=== PATIENT | male | born 1940 | race African-American/Black ===

== ENCOUNTER 2019-08-18 15:46 | Inpatient (IN) | payer MEDICARE, BC ==
[~2019-08-18] VITALS: Ht 175.3 cm; Wt 99.3 kg
[~2019-08-18 15:46] MED LIST: ACET-2708 PO; DOCU-150 PO; SIMV-46 PO; TAMS0.4C31 PO; TRAM50TA PO
[2019-08-18] MEDS ORDERED: HYDROCODONE/ACETAMINOPHEN 5/325MG TABLET PO STA (16:11)
[2019-08-18] MEDS ORDERED: ACETAMINOPHEN 325MG TABLET PO STA (16:11)
[2019-08-18] MEDS ORDERED: SODIUM CHLORIDE 0.9% 500 ML IV ONE (17:00)
[2019-08-18 17:09] LABS: BASOPHILS % 0.5 % (0.0-2.0); EOSINOPHILS % 0.1 % (0.0-5.0); HEMATOCRIT. 36.6 % (42.0-52.0); HEMOGLOBIN. 12.3 g/dL (14.0-18.0); LYMPHOCYTES % 10.2 % (20.0-50.0); MEAN CORPUSCULAR HEMOGLOBIN 31.4 pg (28.0-32.0); MEAN CORPUSCULAR VOLUME 93.4 fL (80.0-94.0); MEAN PLATELET VOLUME 8.1 fl (7.4-10.4); MONOCYTES % 12.3 % (2.0-8.0); NEUTROPHILS % 76.9 % (40.0-76.0); PLATELET 201 x1000/uL (130-400); RED BLOOD CELL COUNT 3.92 mill/uL (4.7-6.1); RED CELL DISTRIBUTION WIDTH 15.1 % (11.6-14.6)
[2019-08-18 17:13] LABS: CHLORIDE 109 mEq/L (98-107)
[2019-08-18] MEDS ORDERED: CEFTRIAXONE 1 G PREMIX 50 ML IV NR (20:00)
[2019-08-18] MEDS ORDERED: IPRATROPIUM/ALBUTEROL 0.5-3(2.5)MG/3ML NEB HHN PRN (20:00)
[2019-08-18] MEDS ORDERED: CLONIDINE 0.1MG TABLET PO PRN (20:00)
[2019-08-18] MEDS ORDERED: ONDANSETRON HCL 4MG/2ML INJ IV PRN (20:00)
[2019-08-18] MEDS ORDERED: MAGNESIUM/ALUMINUM HYDROXIDE/SIMETHICONE 30ML UDC PO PRN (20:00)
[2019-08-18] MEDS: FUROSEMIDE 20MG/2ML VIAL IVP SCH (21:22)
[2019-08-18] MEDS: CARVEDILOL 3.125 MG TABLET PO SCH (21:37)
[2019-08-18] MEDS: ENOXAPARIN 100MG/ML SYR SUBCUT SCH (22:08)
[2019-08-19 05:41] LABS: HEMATOCRIT. 32.9 % (42.0-52.0); HEMOGLOBIN. 11.1 g/dL (14.0-18.0); MEAN CORPUSCULAR HEMOGLOBIN 31.3 pg (28.0-32.0); MEAN CORPUSCULAR VOLUME 93.1 fL (80.0-94.0); MEAN PLATELET VOLUME 8.5 fl (7.4-10.4); PLATELET 189 x1000/uL (130-400); RED BLOOD CELL COUNT 3.54 mill/uL (4.7-6.1); RED CELL DISTRIBUTION WIDTH 14.9 % (11.6-14.6)
[2019-08-19 05:54] LABS: CHLORIDE 107 mEq/L (98-107)
[2019-08-19 06:04] LABS: T4 FREE 1.23 ng/dL (0.76-1.46)
[2019-08-19 07:06] LABS: PLATELET ESTIMATE NORMAL
[2019-08-19 07:52] LABS: BG BASE EXCESS 0.5 mmol/L (-2.0-2.0); BG CARBOXYHEMOGLOBIN 0.7 % (0.5-1.5); BG DEOXYHEMOGLOBIN 4.2 % (0.0-5.0); BG FRACTION INSPIRED OXYGEN 21; BG HCO3 ACT 25.5 mmol/L (22.0-26.0); BG METHEMOGLOBIN 0.1 % (0.0-1.5); BG OXYGEN SATURATION 95.8 % (92.0-98.5); BG PCO2 42.3 mmHg (35.0-45.0); BG PH 7.398 (7.350-7.450); BG SAMPLE SITE RIGHT RADIAL; BG VENT MODE ROOM AIR
[2019-08-19 09:10] LABS: CLARITY URINE CLEAR (CLEAR); COLOR URINE YELLOW (YELLOW); KETONES URINE NEGATIVE (NEGATIVE); LEUKOCYTE ESTERASE URINE NEGATIVE (NEGATIVE); NITRITE URINE NEGATIVE (NEGATIVE); OCCULT BLOOD URINE 2+ (NEGATIVE); PROTEIN URINE 1+ (NEGATIVE); SPECIFIC GRAVITY URINE 1.013 (1.005-1.030)
[2019-08-19] MEDS: FUROSEMIDE 20MG/2ML VIAL IVP SCH (09:29)
[2019-08-19] MEDS: ACETAMINOPHEN 325MG TABLET PO PRN ×2 (09:30→18:31)
[2019-08-19] MEDS: ENOXAPARIN 100MG/ML SYR SUBCUT SCH ×2 (09:30→20:36)
[2019-08-19] MEDS: CARVEDILOL 3.125 MG TABLET PO SCH (11:07)
[2019-08-19] MEDS ORDERED: AZITHROMYCIN 500 MG in DEXT 5% WATER 250 ML IV NR (12:00)
[2019-08-19] MEDS ORDERED: METOPROLOL TARTRATE 25MG TABLET PO SCH (12:15)
[2019-08-19 16:30] VITALS: BP 157/80
[2019-08-19] MEDS ORDERED: ALBUTEROL 6.7GM HFA INHALER ORI PRN (17:00)
[2019-08-19 20:00] VITALS: BP 122/93
[2019-08-19] MEDS: ASCORBIC ACID 500 MG TABLET PO SCH (20:37)
[2019-08-19] MEDS ORDERED: CEFTRIAXONE 1 G PREMIX 50 ML IV ONE (21:00)
[2019-08-20] VITALS (7 sets, daily range): BP systolic 109–164; BP diastolic 72–93
[2019-08-20 08:18] LABS: INR 1.1; PROTHROMBIN TIME 11.8 sec (9.6-11.0)
[2019-08-20] MEDS: FUROSEMIDE 20MG/2ML VIAL IVP SCH (08:37)
[2019-08-20] MEDS: THIAMINE HCL 100MG TABLET PO SCH (08:38)
[2019-08-20] MEDS: ZINC SULFATE 220 MG ( 50 ) CAPSULE PO SCH (08:38)
[2019-08-20] MEDS: ASCORBIC ACID 500 MG TABLET PO SCH ×2 (08:38→21:56)
[2019-08-20] MEDS: ENOXAPARIN 100MG/ML SYR SUBCUT SCH (08:39)
[2019-08-20] MEDS: AMLODIPINE 5MG TABLET PO SCH (08:39)
[2019-08-20] MEDS ORDERED: AZITHROMYCIN 500 MG in DEXT 5% WATER 250 ML IV SCH (12:00)
[2019-08-20] MEDS: ACETAMINOPHEN 325MG TABLET PO PRN ×3 (12:24→22:26)
[2019-08-20] MEDS: METOPROLOL TARTRATE 25MG TABLET PO SCH ×2 (13:00→21:56)
[2019-08-20 16:30] LABS: BASOPHILS % 0.7 % (0.0-2.0); EOSINOPHILS % 0.3 % (0.0-5.0); HEMATOCRIT. 35.1 % (42.0-52.0); HEMOGLOBIN. 11.8 g/dL (14.0-18.0); LYMPHOCYTES % 11.1 % (20.0-50.0); MEAN CORPUSCULAR HEMOGLOBIN 31.1 pg (28.0-32.0); MEAN CORPUSCULAR VOLUME 92.7 fL (80.0-94.0); MEAN PLATELET VOLUME 8.9 fl (7.4-10.4); MONOCYTES % 13.4 % (2.0-8.0); NEUTROPHILS % 74.5 % (40.0-76.0); PLATELET 233 x1000/uL (130-400); RED BLOOD CELL COUNT 3.79 mill/uL (4.7-6.1); RED CELL DISTRIBUTION WIDTH 14.9 % (11.6-14.6)
[2019-08-20 16:38] LABS: CHLORIDE 103 mEq/L (98-107)
[2019-08-20] MEDS: APIXABAN 2.5 MG TABLET PO SCH (21:57)
[2019-08-21] VITALS (7 sets, daily range): BP systolic 114–155; BP diastolic 72–89
[2019-08-21] MEDS: APIXABAN 2.5 MG TABLET PO SCH ×2 (08:54→16:25)
[2019-08-21] MEDS: ASCORBIC ACID 500 MG TABLET PO SCH ×2 (08:54→21:53)
[2019-08-21] MEDS: THIAMINE HCL 100MG TABLET PO SCH (08:54)
[2019-08-21] MEDS: METOPROLOL TARTRATE 25MG TABLET PO SCH ×2 (08:55→21:54)
[2019-08-21] MEDS: AMLODIPINE 5MG TABLET PO SCH (08:55)
[2019-08-21] MEDS: ZINC SULFATE 220 MG ( 50 ) CAPSULE PO SCH (08:55)
[2019-08-21 10:02] LABS: BASOPHILS % 0.5 % (0.0-2.0); EOSINOPHILS % 0.3 % (0.0-5.0); HEMATOCRIT. 34.5 % (42.0-52.0); HEMOGLOBIN. 11.6 g/dL (14.0-18.0); LYMPHOCYTES % 10.4 % (20.0-50.0); MEAN CORPUSCULAR HEMOGLOBIN 31.1 pg (28.0-32.0); MEAN CORPUSCULAR VOLUME 92.9 fL (80.0-94.0); MEAN PLATELET VOLUME 8.4 fl (7.4-10.4); MONOCYTES % 13.6 % (2.0-8.0); NEUTROPHILS % 75.2 % (40.0-76.0); PLATELET 248 x1000/uL (130-400); RED BLOOD CELL COUNT 3.72 mill/uL (4.7-6.1)
[2019-08-21] MEDS: GABAPENTIN 100MG CAPSULE PO SCH (21:53)
[2019-08-21] MEDS: ACETAMINOPHEN 325MG TABLET PO PRN (21:53)
[2019-08-21] MEDS: IPRATROPIUM/ALBUTEROL 0.5-3(2.5)MG/3ML NEB HHN SCH (21:59)
[2019-08-22 00:17] VITALS: BP 126/60
[2019-08-22] MEDS: IPRATROPIUM/ALBUTEROL 0.5-3(2.5)MG/3ML NEB HHN SCH ×3 (02:00→21:36)
[2019-08-22] MEDS: ACETAMINOPHEN 325MG TABLET PO PRN ×3 (04:12→21:19)
[2019-08-22 04:25] VITALS: BP 130/76
[2019-08-22] MEDS: GABAPENTIN 100MG CAPSULE PO SCH ×3 (06:28→21:19)
[2019-08-22 08:00] VITALS: BP 129/73
[2019-08-22] MEDS: THIAMINE HCL 100MG TABLET PO SCH (08:51)
[2019-08-22] MEDS: ASCORBIC ACID 500 MG TABLET PO SCH ×2 (08:51→21:19)
[2019-08-22] MEDS: APIXABAN 2.5 MG TABLET PO SCH ×2 (08:51→17:31)
[2019-08-22] MEDS: ZINC SULFATE 220 MG ( 50 ) CAPSULE PO SCH (08:51)
[2019-08-22] MEDS: AMLODIPINE 5MG TABLET PO SCH (08:52)
[2019-08-22] MEDS: METOPROLOL TARTRATE 25MG TABLET PO SCH ×2 (08:52→21:19)
[2019-08-22 12:00] VITALS: BP 131/70
[2019-08-22 16:00] VITALS: BP 127/75
[2019-08-22 19:44] VITALS: BP 135/70
[2019-08-23] VITALS: BP 133/70
[2019-08-23] MEDS: IPRATROPIUM/ALBUTEROL 0.5-3(2.5)MG/3ML NEB HHN SCH ×4 (02:46→21:02)
[2019-08-23 04:00] VITALS: BP 144/72
[2019-08-23] MEDS: GABAPENTIN 100MG CAPSULE PO SCH ×3 (05:03→21:17)
[2019-08-23] MEDS: ACETAMINOPHEN 325MG TABLET PO PRN (05:04)
[2019-08-23 06:11] LABS: BASOPHILS % 0.3 % (0.0-2.0); EOSINOPHILS % 0.6 % (0.0-5.0); HEMATOCRIT. 31.9 % (42.0-52.0); HEMOGLOBIN. 10.7 g/dL (14.0-18.0); LYMPHOCYTES % 9.9 % (20.0-50.0); MEAN CORPUSCULAR VOLUME 92.7 fL (80.0-94.0); MEAN PLATELET VOLUME 8.3 fl (7.4-10.4); MONOCYTES % 14.2 % (2.0-8.0); PLATELET 273 x1000/uL (130-400); RED BLOOD CELL COUNT 3.44 mill/uL (4.7-6.1); RED CELL DISTRIBUTION WIDTH 14.5 % (11.6-14.6)
[2019-08-23 08:00] VITALS: BP 127/67
[2019-08-23] MEDS: ZINC SULFATE 220 MG ( 50 ) CAPSULE PO SCH (08:30)
[2019-08-23] MEDS: THIAMINE HCL 100MG TABLET PO SCH (08:30)
[2019-08-23] MEDS: APIXABAN 2.5 MG TABLET PO SCH ×2 (08:30→16:57)
[2019-08-23] MEDS: ASCORBIC ACID 500 MG TABLET PO SCH ×2 (08:30→21:17)
[2019-08-23] MEDS: AMLODIPINE 5MG TABLET PO SCH (08:35)
[2019-08-23] MEDS: METOPROLOL TARTRATE 25MG TABLET PO SCH ×2 (08:36→21:17)
[2019-08-23 12:00] VITALS: BP 110/73
[2019-08-23 16:00] VITALS: BP_SYST 110; BP_SYST 140; BP_DIAS 60; BP_DIAS 67
[2019-08-23 20:00] VITALS: BP 131/68
[2019-08-24 00:01] VITALS: BP 130/76
[2019-08-24] MEDS: CEFTRIAXONE 1 G PREMIX 50 ML IV SCH ×2 (00:05→17:52)
[2019-08-24] MEDS: IPRATROPIUM/ALBUTEROL 0.5-3(2.5)MG/3ML NEB HHN SCH ×3 (01:12→14:00)
[2019-08-24 04:00] VITALS: BP 119/68
[2019-08-24] MEDS: GABAPENTIN 100MG CAPSULE PO SCH ×3 (05:15→21:32)
[2019-08-24 06:41] LABS: BASOPHILS % 0.5 % (0.0-2.0); EOSINOPHILS % 1.8 % (0.0-5.0); HEMATOCRIT. 33.3 % (42.0-52.0); HEMOGLOBIN. 11.2 g/dL (14.0-18.0); LYMPHOCYTES % 11.2 % (20.0-50.0); MEAN CORPUSCULAR HEMOGLOBIN 31.6 pg (28.0-32.0); MEAN CORPUSCULAR VOLUME 93.4 fL (80.0-94.0); MEAN PLATELET VOLUME 8.3 fl (7.4-10.4); MONOCYTES % 13.7 % (2.0-8.0); NEUTROPHILS % 72.8 % (40.0-76.0); PLATELET 327 x1000/uL (130-400); RED BLOOD CELL COUNT 3.56 mill/uL (4.7-6.1); RED CELL DISTRIBUTION WIDTH 15.2 % (11.6-14.6)
[2019-08-24 08:00] VITALS: BP 135/75
[2019-08-24] MEDS: ASCORBIC ACID 500 MG TABLET PO SCH ×2 (09:08→21:33)
[2019-08-24] MEDS: ZINC SULFATE 220 MG ( 50 ) CAPSULE PO SCH (09:08)
[2019-08-24] MEDS: APIXABAN 2.5 MG TABLET PO SCH ×2 (09:08→17:49)
[2019-08-24] MEDS: THIAMINE HCL 100MG TABLET PO SCH (09:08)
[2019-08-24] MEDS: METOPROLOL TARTRATE 25MG TABLET PO SCH (09:09)
[2019-08-24] MEDS: AMLODIPINE 5MG TABLET PO SCH (09:09)
[2019-08-24 12:00] VITALS: BP 112/65
[2019-08-24] MEDS: LACTULOSE 20G/30ML UDC PO SCH ×3 (13:33→21:35)
[2019-08-24 16:00] VITALS: BP 119/67
[2019-08-24] MEDS: DOCUSATE SODIUM 100MG CAPSULE PO SCH (17:49)
[2019-08-24 20:00] VITALS: BP 159/87
[2019-08-24] MEDS: POLYETHYLENE GLYCOL 3350 (17GM) 1 DOSE PACK PO SCH (21:32)
[2019-08-24] MEDS: METOPROLOL TARTRATE 50MG TABLET PO SCH (21:33)
[2019-08-25] VITALS: BP 118/70
[2019-08-25 04:00] VITALS: BP 127/53
[2019-08-25] MEDS: IPRATROPIUM/ALBUTEROL 0.5-3(2.5)MG/3ML NEB HHN SCH ×4 (04:00→20:28)
[2019-08-25] MEDS: GABAPENTIN 100MG CAPSULE PO SCH ×3 (06:04→21:07)
[2019-08-25 08:00] VITALS: BP 117/63
[2019-08-25] MEDS: ASCORBIC ACID 500 MG TABLET PO SCH ×2 (09:14→21:07)
[2019-08-25] MEDS: METOPROLOL TARTRATE 50MG TABLET PO SCH ×2 (09:14→21:07)
[2019-08-25] MEDS: DOCUSATE SODIUM 100MG CAPSULE PO SCH ×2 (09:14→18:24)
[2019-08-25] MEDS: APIXABAN 2.5 MG TABLET PO SCH ×2 (09:14→18:24)
[2019-08-25] MEDS: ZINC SULFATE 220 MG ( 50 ) CAPSULE PO SCH (09:15)
[2019-08-25] MEDS: THIAMINE HCL 100MG TABLET PO SCH (09:15)
[2019-08-25] MEDS: LIDOCAINE 5% PATCH TOP SCH (09:28)
[2019-08-25 12:00] VITALS: BP 123/70
[2019-08-25 16:00] VITALS: BP 122/77
[2019-08-25] MEDS: CEFTRIAXONE 1 G PREMIX 50 ML IV SCH (18:24)
[2019-08-25 20:00] VITALS: BP 122/65
[2019-08-25] MEDS: POLYETHYLENE GLYCOL 3350 (17GM) 1 DOSE PACK PO SCH (21:07)
[2019-08-26] VITALS: BP 135/65
[2019-08-26] MEDS: IPRATROPIUM/ALBUTEROL 0.5-3(2.5)MG/3ML NEB HHN SCH ×3 (02:00→21:28)
[2019-08-26 04:00] VITALS: BP 128/75
[2019-08-26] MEDS: GABAPENTIN 100MG CAPSULE PO SCH ×3 (05:57→22:07)
[2019-08-26 06:54] LABS: BASOPHILS % 0.6 % (0.0-2.0); HEMATOCRIT. 32.3 % (42.0-52.0); LYMPHOCYTES % 11.2 % (20.0-50.0); MEAN CORPUSCULAR HEMOGLOBIN 31.9 pg (28.0-32.0); MEAN CORPUSCULAR VOLUME 93.5 fL (80.0-94.0); MONOCYTES % 14.6 % (2.0-8.0); NEUTROPHILS % 70.6 % (40.0-76.0); PLATELET 340 x1000/uL (130-400); RED BLOOD CELL COUNT 3.46 mill/uL (4.7-6.1); RED CELL DISTRIBUTION WIDTH 15.1 % (11.6-14.6)
[2019-08-26 08:00] VITALS: BP 123/75
[2019-08-26] MEDS: THIAMINE HCL 100MG TABLET PO SCH (09:36)
[2019-08-26] MEDS: DOCUSATE SODIUM 100MG CAPSULE PO SCH ×2 (09:36→18:19)
[2019-08-26] MEDS: ASCORBIC ACID 500 MG TABLET PO SCH ×2 (09:36→22:07)
[2019-08-26] MEDS: METOPROLOL TARTRATE 50MG TABLET PO SCH ×2 (09:36→22:12)
[2019-08-26] MEDS: ZINC SULFATE 220 MG ( 50 ) CAPSULE PO SCH (09:36)
[2019-08-26] MEDS: APIXABAN 2.5 MG TABLET PO SCH ×2 (09:36→18:19)
[2019-08-26] MEDS: LIDOCAINE 5% PATCH TOP SCH ×2 (09:37→09:41)
[2019-08-26 12:00] VITALS: BP 116/91
[2019-08-26 16:00] VITALS: BP 118/94
[2019-08-26 16:57] LABS: T4 FREE 1.41 ng/dL (0.76-1.46)
[2019-08-26 17:03] LABS: FOLIC ACID (FOLATE) SERUM 18.5 ng/mL (>5.38)
[2019-08-26] MEDS: CEFTRIAXONE 1 G PREMIX 50 ML IV SCH (18:19)
[2019-08-26 20:37] VITALS: BP 118/94
[2019-08-26] MEDS: POLYETHYLENE GLYCOL 3350 (17GM) 1 DOSE PACK PO SCH (21:00)
[2019-08-29 12:00] VITALS: BP 102/63
[2019-08-29 16:00] VITALS: BP 117/58
[2019-09-03] MEDS ORDERED: METO-539 PO (11:27)
[2019-09-03] MEDS ORDERED: GABA-529 PO (11:27)
[2019-09-03] MEDS ORDERED: APIX2.5T PO (11:27)
[2019-09-03] MEDS ORDERED: TAMS-11 MT (11:28)
[2019-09-03] MEDS ORDERED: DOCU-150 PO (11:28)
[2019-09-03] MEDS ORDERED: FLUT1DIS3 INH (11:28)
[2019-09-03] MEDS ORDERED: ALBU18HF2 IH (11:28)
[2019-09-03] MEDS ORDERED: IPRA3AMP9 NEB (13:15)
[2019-09-03] MEDS ORDERED: PRED10TA MT (14:58)
[2019-09-03] MEDS ORDERED: GUAI600T26 MT (15:46)
== END 2019-08-26 22:35 | DRG 871 ==
LOC: ER 15:46 → EDBEDREQTM 20:10 → EDBEDREQ 20:10 → ENRESERV 08-19 14:48 → 7EST 08-19 16:54 → 6WST 08-20 23:34
PROVIDERS: ADMIT Specialist; ATTEND Specialist
PROC: 3E0U33Z Introduction of Anti-inflammatory into Joints, Percutaneous Approach (ICD-10-PCS; principal; 2019-08-26)
PROC: 0S9C4ZZ Drainage of Right Knee Joint, Percutaneous Endoscopic Approach (ICD-10-PCS; 2019-08-26)
PROC: 3E0U33Z Introduction of Anti-inflammatory into Joints, Percutaneous Approach (ICD-10-PCS; 2019-08-26)
PROC: 3E0U3BZ Introduction of Anesthetic Agent into Joints, Percutaneous Approach (ICD-10-PCS; 2019-08-26)
PROC: 3E0U3BZ Introduction of Anesthetic Agent into Joints, Percutaneous Approach (ICD-10-PCS; 2019-08-26)
DX: A41.9 Sepsis, unspecified organism (principal); G82.50 Quadriplegia, unspecified; I50.23 Acute on chronic systolic (congestive) heart failure; E46 Unspecified protein-calorie malnutrition; I13.0 Hypertensive heart and chronic kidney disease with heart failure and stage 1 through stage 4 chronic kidney disease, or unspecified chronic kidney disease; N17.9 Acute kidney failure, unspecified; I42.9 Cardiomyopathy, unspecified; I48.92 Unspecified atrial flutter; E11.22 Type 2 diabetes mellitus with diabetic chronic kidney disease; I25.10 Atherosclerotic heart disease of native coronary artery without angina pectoris; J44.9 Chronic obstructive pulmonary disease, unspecified; E11.51 Type 2 diabetes mellitus with diabetic peripheral angiopathy without gangrene; E78.5 Hyperlipidemia, unspecified; M25.461 Effusion, right knee; D64.9 Anemia, unspecified; E27.8 Other specified disorders of adrenal gland; K42.9 Umbilical hernia without obstruction or gangrene; K57.30 Diverticulosis of large intestine without perforation or abscess without bleeding; N18.3 Chronic kidney disease, stage 3 (moderate); N40.0 Benign prostatic hyperplasia without lower urinary tract symptoms; D63.8 Anemia in other chronic diseases classified elsewhere; I25.2 Old myocardial infarction; Z86.718 Personal history of other venous thrombosis and embolism; Z87.891 Personal history of nicotine dependence; Z95.0 Presence of cardiac pacemaker; Z95.1 Presence of aortocoronary bypass graft; Z95.5 Presence of coronary angioplasty implant and graft; Z68.32 Body mass index [BMI] 32.0-32.9, adult; Z79.01 Long term (current) use of anticoagulants; Z86.711 Personal history of pulmonary embolism; Z79.899 Other long term (current) drug therapy; Z82.49 Family history of ischemic heart disease and other diseases of the circulatory system; Z03.818 Encounter for observation for suspected exposure to other biological agents ruled out; M17.11 Unilateral primary osteoarthritis, right knee; M51.36 Other intervertebral disc degeneration, lumbar region; M48.02 Spinal stenosis, cervical region; I48.91 Unspecified atrial fibrillation; G62.9 Polyneuropathy, unspecified; N28.1 Cyst of kidney, acquired; I71.2 Thoracic aortic aneurysm, without rupture; M70.41 Prepatellar bursitis, right knee; G47.30 Sleep apnea, unspecified; M48.061 Spinal stenosis, lumbar region without neurogenic claudication; M50.31 Other cervical disc degeneration, high cervical region; M51.16 Intervertebral disc disorders with radiculopathy, lumbar region; M51.17 Intervertebral disc disorders with radiculopathy, lumbosacral region; M48.07 Spinal stenosis, lumbosacral region; M47.27 Other spondylosis with radiculopathy, lumbosacral region; E11.40 Type 2 diabetes mellitus with diabetic neuropathy, unspecified
CPT/HCPCS: 36415; 36600; 71045; 71250; 72128; 72131; 73610; 73630; 73700; 74176; 80048; 80053; 81003; 82140; 82375; 82550; 82607; 82746; 82805; 82962; 83036; 83605; 83735; 83880; 84145; 84439; 84443; 84481; 84484; 84550; 85025; 85651; 86141; 87070; 87635; 87804; 89060; 92523; 93005; 93971; 97116; 97162; 97166; 97530; 97535; 99285; J0456; J0696; J1650; J1940; J7040; J7060; U0003-CS